=== PATIENT | female | born 1990 | race Two or more races ===

== ENCOUNTER 2018-01-17 09:01 | Inpatient (IN) | payer OTHER ==
[~2018-01-17] VITALS: Ht 162.6 cm; Wt 75.4 kg
[2018-01-17 09:08] VITALS: BP 110/76
[2018-01-17] MEDS ORDERED: PREN-3 PO (09:11)
[2018-01-17] MEDS: LACTATED RINGERS 1,000 ML IV SCH ×8 (09:51→22:06)
[2018-01-17] MEDS ORDERED: MISOPROSTOL 200 MCG TABLET ONE (09:57)
[2018-01-17] MEDS ORDERED: OXYTOCIN 30U/ 0.9% NaCL 500ML 500 ML ONE (09:57)
[2018-01-17] MEDS ORDERED: NEWBORN KIT ONE (09:57)
[2018-01-17] MEDS ORDERED: METOCLOPRAMIDE 5 MG/ML, 2ML IV ONE (10:00)
[2018-01-17] MEDS ORDERED: LACTATED RINGERS 1,000 ML IVBOLUS ONE (10:00)
[2018-01-17] MEDS ORDERED: SODIUM CITRATE/CITRIC ACID 30 ML UDC PO ONE (10:00)
[2018-01-17 10:21] LABS: MEAN CORPUSCULAR HEMOGLOBIN 30.1 pg (27.0-34.8); MEAN CORPUSCULAR VOLUME 88.7 fL (80-100); MEAN PLATELET VOLUME 10.7 fL (7.4-10.4); PLATELET COUNT 247 x10^3/uL (130-400); RED BLOOD COUNT 4.16 x10^6/uL (3.82-5.3); RED CELL DISTRIBUTION WIDTH 13.6 % (9.6-15.2)
[2018-01-17] MEDS ORDERED: METOCLOPRAMIDE 5 MG/ML, 2ML ONE (10:27)
[2018-01-17] MEDS ORDERED: SODIUM CITRATE/CITRIC ACID 30 ML UDC ONE (10:27)
[2018-01-17] MEDS ORDERED: ONDANSETRON 2MG/ML, 2ML ONE ×2 (10:32→12:41)
[2018-01-17] MEDS ORDERED: OXYTOCIN 10 UNITS/ML, 1ML ONE (10:32)
[2018-01-17] MEDS ORDERED: CEFAZOLIN 1,000 MG ONE (10:32)
[2018-01-17] MEDS ORDERED: HYDROmorphone 2 MG/ML, 1ML ONE (10:33)
[2018-01-17] MEDS ORDERED: FENTANYL PF 100 MCG/2ML ONE (10:33)
[2018-01-17 10:40] LABS: BASOPHILS # (AUTO) 0.03 x10^3/uL (0-0.1); BASOPHILS % (AUTO) 0 % (0-1); EOSINOPHILS # (AUTO) 0.04 x10^3/uL (0-0.4); EOSINOPHILS % (AUTO) 0 % (1-7); LYMPHOCYTES # (AUTO) 1.48 x10^3/uL (1-3.4); LYMPHOCYTES % (AUTO) 11 % (22-44); MD SCAN; MONOCYTES # (AUTO) 0.72 x10^3/uL (0.2-0.8); MONOCYTES % (AUTO) 6 % (2-9); NEUTROPHILS # (AUTO) 10.77 x10^3/uL (1.8-6.8); NEUTROPHILS % (AUTO) 83 % (42-75)
[2018-01-17] MEDS: OXYTOCIN 30U/ 0.9% NaCL 500ML 500 ML IV SCH ×4 (12:06→22:06)
[2018-01-17] MEDS ORDERED: MISOPROSTOL 200 MCG TABLET PR PRN (12:30)
[2018-01-17] MEDS ORDERED: morphine SULFATE 10 MG/ML, 1ML IVPush PRN (12:30)
[2018-01-17] MEDS ORDERED: ONDANSETRON 2MG/ML, 2ML IVPush ONE (13:00)
[2018-01-17 14:54] VITALS: BP 111/57
[2018-01-17] MEDS: KETOROLAC 30 MG/1 ML IV PRN ×2 (16:44→22:55)
[2018-01-17 17:55] VITALS: BP 99/59
[2018-01-17 20:00] VITALS: BP 111/66
[2018-01-17 20:39] LABS: BASOPHILS # (AUTO) 0.04 x10^3/uL (0-0.1); BASOPHILS % (AUTO) 0 % (0-1); EOSINOPHILS # (AUTO) 0.01 x10^3/uL (0-0.4); EOSINOPHILS % (AUTO) 0 % (1-7); LYMPHOCYTES # (AUTO) 1.47 x10^3/uL (1-3.4); LYMPHOCYTES % (AUTO) 9 % (22-44); MD YES; MEAN CORPUSCULAR HGB CONC 33.4 g/dL (32.4-35.8); MEAN CORPUSCULAR VOLUME 89.7 fL (80-100); MEAN PLATELET VOLUME 10.9 fL (7.4-10.4); MONOCYTES # (AUTO) 0.94 x10^3/uL (0.2-0.8); MONOCYTES % (AUTO) 6 % (2-9); NEUTROPHILS # (AUTO) 14.51 x10^3/uL (1.8-6.8); NEUTROPHILS % (AUTO) 86 % (42-75); PLATELET COUNT 219 x10^3/uL (130-400); RED BLOOD COUNT 3.96 x10^6/uL (3.82-5.3)
[2018-01-17] MEDS: OXYcodone/APAP 5/325MG TABLET PO PRN ×2 (22:55→23:29)
[2018-01-17 23:55] VITALS: BP 100/60
[2018-01-18] MEDS: LACTATED RINGERS 1,000 ML IV SCH ×3 (01:51→11:52)
[2018-01-18 04:40] VITALS: BP 95/56
[2018-01-18] MEDS: OXYcodone/APAP 5/325MG TABLET PO PRN ×3 (05:17→21:48)
[2018-01-18] MEDS: OXYTOCIN 30U/ 0.9% NaCL 500ML 500 ML IV SCH ×3 (05:51→11:52)
[2018-01-18] MEDS: KETOROLAC 30 MG/1 ML IV PRN (07:55)
[2018-01-18] MEDS: PRENATAL VIT/IRON/FA 1 EACH TABLET PO SCH (07:55)
[2018-01-18 08:35] VITALS: BP 101/70
[2018-01-18 12:15] VITALS: BP 97/64
[2018-01-18] MEDS: IBUPROFEN 600 MG TABLET PO PRN (21:48)
[2018-01-18 21:50] VITALS: BP 106/68
[2018-01-19 08:30] VITALS: BP 100/62
[2018-01-19] MEDS: PRENATAL VIT/IRON/FA 1 EACH TABLET PO SCH (08:55)
[2018-01-19] MEDS: IBUPROFEN 600 MG TABLET PO PRN (08:56)
[2018-01-19] MEDS ORDERED: IBUP-1222 PO (13:51)
[2018-01-19] MEDS ORDERED: OXYC-302 PO (13:51)
[2018-01-19] MEDS: OXYcodone/APAP 5/325MG TABLET PO PRN (14:21)
== END 2018-01-19 15:32 | disposition home or self-care (01) | DRG 788 ==
LOC: LDOP 09:01 → LDIP 09:51 → 2NE 14:29 → 2NW 14:30 → EDSTATUS 01-28 09:00
PROVIDERS: ADMIT Obstetrics & Gynecology Maternal & Fetal Medicine; ATTEND Obstetrics & Gynecology Maternal & Fetal Medicine
PROC: 10D00Z1 Extraction of Products of Conception, Low, Open Approach (ICD-10-PCS; principal; 2018-01-17)
DX: O32.1XX0 Maternal care for breech presentation, not applicable or unspecified (principal); O42.92 Full-term premature rupture of membranes, unspecified as to length of time between rupture and onset of labor; Z82.49 Family history of ischemic heart disease and other diseases of the circulatory system; Z3A.39 39 weeks gestation of pregnancy; Z37.0 Single live birth
CPT/HCPCS: 36415; 85025; 86850; 86900; 89060; G0378; J0690; J1170; J1885; J2405; J3010; J2590; J2765; J7120; Q0114